=== PATIENT | male | born 1995 | race Two or more races ===

== ENCOUNTER 2017-06-17 23:30 | Emergency (ER) | payer MEDICAID, OTHER ==
[~2017-06-17] VITALS: Ht 162.6 cm; Wt 78.4 kg
[2017-06-17 23:41] VITALS: BP 128/62
[2017-06-18] MEDS ORDERED: LIDOCAINE 1%, 20ML ONE (00:14)
== END 2017-06-18 00:44 | disposition home or self-care (01) ==
LOC: ED 06-18 00:30
DX: K02.9 Dental caries, unspecified (principal); K04.7 Periapical abscess without sinus
CPT/HCPCS: 41800; 99283

== ENCOUNTER 2018-04-19 00:39 | Emergency (ER) | payer MEDICAID ==
[~2018-04-19] VITALS: Ht 165.1 cm; Wt 73.4 kg
[2018-04-19 00:41] VITALS: BP 136/70
== END 2018-04-19 02:00 | disposition home or self-care (01) ==
LOC: ED 01:52
DX: B08.1 Molluscum contagiosum (principal); Z87.891 Personal history of nicotine dependence; Z90.89 Acquired absence of other organs
CPT/HCPCS: 99281

== ENCOUNTER 2019-07-06 16:38 | Emergency (ER) | payer SELFPAY ==
[~2019-07-06] VITALS: Ht 162.6 cm; Wt 76.4 kg
[2019-07-06 16:59] VITALS: BP 126/71
--- NOTE | 2019-07-06 17:11 | NUR ---
PT HERE FOR RIGHT SHOULDER PAIN S/P FALL AT WORK AND LEFT ELBOW PAIN. PT REPORTS DIFFICULTY LIFTING SON NOW. VSS
--- NOTE | 2019-07-06 17:37 | NUR ---
CHART UP FOR RECHECK
--- NOTE | 2019-07-06 18:05 | NUR ---
Patient/Caregiver given discharge instructions and they have confirmed that they understand the instructions. Patient ambulatory with steady gait. Prescrition and OTC medication use reviewed at time of d/c.
== END 2019-07-06 18:04 | disposition home or self-care (01) ==
LOC: ED 17:55
DX: M77.9 Enthesopathy, unspecified (principal); E11.9 Type 2 diabetes mellitus without complications; Z72.89 Other problems related to lifestyle; Z87.891 Personal history of nicotine dependence
CPT/HCPCS: 99283